=== PATIENT | male | born 1950 | race Hispanic/Latino ===

== ENCOUNTER 2024-06-20 06:25 | Day surgery (SDC) | payer OTHER ==
[~2024-06-20] VITALS: Ht 182.9 cm; Wt 100.7 kg
[2024-06-20] VITALS (13 sets, daily range): BP systolic 112–160; BP diastolic 51–67; PULSE 50–62; RESP 15–18; TEMP 97–99.7
[~2024-06-20 06:25] MED LIST: ACET-2079 PO; ALLO100T PO; AMLO-258 PO; APIX5TAB PO; CHOL50002 PO; GLIP10TA16 PO; HYDR12.54 PO; L.AC1CAP6 PO; LISI40TA9 PO; LOVA40TA2 PO; METF-446 PO; PANT40TA54 PO
[2024-06-20] MEDS ORDERED: 0.9%NACL 1000ML 1,000 ML IV ONE (07:05)
[2024-06-20] MEDS: 0.9%NACL 1000ML 1,000 ML IV ONE (07:06)
[2024-06-20] MEDS ORDERED: GLYCOPYRROLATE 0.2 MG/ML 5 ML VIAL ONE (07:38)
[2024-06-20] MEDS ORDERED: LIDOCAINE PF 100MG/5ML (2%) SYRINGE 5ML ONE (07:38)
[2024-06-20] MEDS ORDERED: proPOFol 10 MG/ML 20ML VIAL IV ONE ×2 (07:38→07:56)
--- NOTE | 2024-06-20 08:06 | OP ---
Operative Note: DATE OF PROCEDURE: 06/20/24 SURGEON: EJ RODRIGUEZ MD CARDIOTHORACIC SURGEON: [None] ANESTHESIA: [MAC] PREOPERATIVE DIAGNOSIS: [Volvulus of the sigmoid colon. Colostomy status] POSTOPERATIVE DIAGNOSIS: [Same. Benign neoplasia of the ascending colon] SYNOPSIS: [Colonoscopy after sigmoid volvulus with Umm's procedure.] PROCEDURE: [Colonoscopy through stoma with biopsy via cold forceps of ascending colon polyp 3 mm. Colonoscopy to rectal stump with injection of Sheeba ink for tattoo.] ESTIMATED BLOOD LOSS: [None] INDICATIONS: [This is a 74-year-old male who presents port a colonoscopy as part of the workup to completed takedown of end stoma done after sigmoid volvulus. Risks were abrasions alternative were explained in detail to the patient who granted consent.] DESCRIPTION OF PROCEDURE: [The patient was identified in the holding area and transferred to the endoscopy suite. After time-out was conducted mac was given by WEIGHT REDUCING TECHNICIAN, and the patient stoma was exposed. Colonoscope was introduced to the descending colostomy in the left lower quadrant and advanced to the cecum without complications. Careful withdrawal with over 6 minutes time was performed. Small adenoma was excised using the biopsy forceps in the ascending colon, 3 mm in size. The rest of the colon was otherwise normal. Afterwards colonoscope was introduced through the rectum and advanced to the end of the rectal stump. There was significant amount stool material in the rectum. The rectal stump was at least 25 cm in length. The end of the stump was injected with Sheeba ink for a total of 6 mL. There were no complications scope was withdrawn without any issues. The patient tolerated the procedure well and was transferred to recovery in stable condition.] EJ RAMIREZ MD Jun 20, 2024 08:06
[2024-06-20] MEDS: DEXTROSE 50%-WATER 50 ML DISP.SYRIN IV ONE (08:28)
== END 2024-06-20 09:10 | disposition home or self-care (01) ==
LOC: ENDO 06:25 → DAH 06:25 → ENDO 09:10
PROVIDERS: ATTEND Surgery
DX: K56.2 Volvulus (principal); D12.2 Benign neoplasm of ascending colon; I10 Essential (primary) hypertension; I48.91 Unspecified atrial fibrillation; E11.9 Type 2 diabetes mellitus without complications; E78.00 Pure hypercholesterolemia, unspecified; Z93.3 Colostomy status; Z79.84 Long term (current) use of oral hypoglycemic drugs; Z79.01 Long term (current) use of anticoagulants; Z79.899 Other long term (current) drug therapy
CPT/HCPCS: 44389; 45381; 82948 ×3; J7030 ×2; J7070; J2003; J2704 ×2; J3490; A4620; A4215; 45380

== ENCOUNTER 2024-06-21 09:51 | Outpatient (CLI) | payer OTHER ==
[~2024-06-21 09:51] MED LIST changes: -L.AC1CAP6 PO; -PANT40TA54 PO
== END 2024-06-21 13:43 | disposition home or self-care (01) ==
LOC: WHH 09:51
PROVIDERS: ATTEND Podiatrist Foot & Ankle Surgery
DX: E11.621 Type 2 diabetes mellitus with foot ulcer (principal); L97.511 Non-pressure chronic ulcer of other part of right foot limited to breakdown of skin; E11.21 Type 2 diabetes mellitus with diabetic nephropathy; E11.51 Type 2 diabetes mellitus with diabetic peripheral angiopathy without gangrene; I11.0 Hypertensive heart disease with heart failure; I50.40 Unspecified combined systolic (congestive) and diastolic (congestive) heart failure; E78.5 Hyperlipidemia, unspecified; E55.9 Vitamin D deficiency, unspecified; E78.00 Pure hypercholesterolemia, unspecified; E66.9 Obesity, unspecified; B35.1 Tinea unguium; I48.0 Paroxysmal atrial fibrillation; M10.9 Gout, unspecified; Z68.30 Body mass index [BMI] 30.0-30.9, adult; Z79.84 Long term (current) use of oral hypoglycemic drugs; Z79.899 Other long term (current) drug therapy; Z90.49 Acquired absence of other specified parts of digestive tract; Z93.3 Colostomy status
CPT/HCPCS: G0463

== ENCOUNTER → 2024-06-28 | Outpatient (CLI) | payer OTHER ==
[2024-06-28 12:28] LABS: HEMOGLOBIN A1C 5.7 % (4.0-6.0)
[2024-06-28 12:29] LABS: ALBUMIN 3.1 g/dL (3.5-5.0); BILIRUBIN,TOTAL 0.4 mg/dL (0.2-1.0); CREATININE 0.9 mg/dL (0.5-1.3); POTASSIUM 4.2 mmol/L (3.5-5.1); TOTAL PROTEIN, SERUM 8.2 g/dL (6.0-8.3)
== END | disposition home or self-care (01) ==
LOC: LAB 10:16
PROVIDERS: ATTEND Student in an Organized Health Care Education/Training Program
DX: I11.9 Hypertensive heart disease without heart failure (principal); E11.65 Type 2 diabetes mellitus with hyperglycemia; E78.5 Hyperlipidemia, unspecified; I48.0 Paroxysmal atrial fibrillation; R94.31 Abnormal electrocardiogram [ECG] [EKG]
CPT/HCPCS: 36415; 80053; 80061; 83036